=== PATIENT | male | born 1955 | race Caucasian/White ===

== ENCOUNTER 2018-02-18 03:42 | Observation (INO) | payer SELFPAY, OTHER, MEDICAID ==
[2018-02-18] MEDS: morphine 4 MG/ML VIAL IV (04:16)
[2018-02-18] MEDS: ONDANSETRON 4 MG INJ IV (04:16)
[2018-02-18] MEDS: hydrALAzine 20 MG INJ IV (04:17)
[2018-02-18 04:28] LABS: ADD MAN DIFF? NO
[2018-02-18 04:29] LABS: BASOPHIL # 0.1 10^3/ul (0.0-0.1); BASOPHILS % 0.8 % (0.0-2.0); EOSINOPHILS # 0.2 10^3/ul (0.0-0.5); EOSINOPHILS % 2.1 % (0.0-7.0); HEMATOCRIT 39.1 % (42.0-52.0); HEMOGLOBIN 13.9 g/dl (14.0-18.0); LYMPHOCYTES # 1.4 10^3/ul (0.8-2.9); LYMPHOCYTES % 19.1 % (15.0-51.0); MEAN CORPUSCULAR HEMOGLOBIN 30.2 pg (29.0-33.0); MEAN CORPUSCULAR HGB CONC 35.5 g/dl (32.0-37.0); MEAN CORPUSCULAR VOLUME 84.8 fl (82.0-101.0); MEAN PLATELET VOLUME 10.2 fl (7.4-10.4); MONOCYTE # 0.7 10^3/ul (0.3-0.9); MONOCYTES % 9.5 % (0.0-11.0); NEUTROPHILS % 68.1 % (39.0-77.0); PLATELET COUNT 292 10^3/UL (140-415); RED BLOOD COUNT 4.61 10^6/ul (4.70-6.10); RED CELL DISTRIBUTION WIDTH 11.6 % (11.5-14.5)
[2018-02-18 04:29] LABS: WHITE BLOOD COUNT 7.3 10^3/ul (4.8-10.8)
[2018-02-18 04:52] LABS: ALANINE AMINOTRANSFERASE 7 IU/L (13-69); ALBUMIN 3.5 g/dl (3.3-4.9); ALBUMIN/GLOBULIN RATIO 1.02; ALKALINE PHOSPHATASE 143 IU/L (42-121); ANION GAP 15 (8-16); ASPARTATE AMINO TRANSFERASE 17 IU/L (15-46); BILIRUBIN,INDIRECT 0.5 mg/dl (0-1.1); BILIRUBIN,TOTAL 0.5 mg/dl (0.2-1.3); BLOOD UREA NITROGEN 19 mg/dl (7-20); CALCIUM 9.7 mg/dl (8.4-10.2); CARBON DIOXIDE 25 mmol/L (21-31); CHLORIDE 97 mmol/L (97-110); CREATININE 0.74 mg/dl (0.61-1.24); GLUCOSE 341 mg/dl (70-220); LIPASE 191 U/L (23-300); POTASSIUM 4.2 mmol/L (3.5-5.1); SODIUM 133 mmol/L (135-144); TOTAL PROTEIN 6.9 g/dl (6.1-8.1)
[2018-02-18 05:02] LABS: ADD UMIC YES; UR ASCORBIC ACID NEGATIVE (NEGATIVE); UR BILIRUBIN (Dip) NEGATIVE (NEGATIVE); UR BLOOD (Dip) NEGATIVE (NEGATIVE); UR CLARITY CLEAR (CLEAR); UR COLOR STRAW (YELLOW); UR GLUCOSE (Dip) 3+ mg/dL (NEGATIVE); UR KETONES (Dip) NEGATIVE (NEGATIVE); UR LEUKOCYTE ESTERASE (Dip) NEGATIVE Leu/ul (NEGATIVE); UR NITRITE (Dip) NEGATIVE (NEGATIVE); UR RBC 1 /HPF (0-5); UR SPECIFIC GRAVITY (Dip) 1.028 (1.003-1.030); UR TOTAL PROTEIN (Dip) 1+ mg/dl (NEGATIVE); UR UROBILINOGEN (Dip) NEGATIVE (NEGATIVE); UR WBC 0 /HPF (0-5)
[2018-02-18] MEDS: METOPROLOL 5 MG INJ IV (05:49)
[2018-02-18] MEDS: PIPER-TAZO 3.375 GM IV (PMX) 100 ML IVPB (05:58)
[2018-02-18] MEDS ORDERED: ONDANSETRON 4 MG INJ IV (07:00)
[2018-02-18] MEDS ORDERED: NACL 0.9% 3 ML SYG IV (07:00)
[2018-02-18] MEDS ORDERED: DEXTROSE 50% 50 ML SYRINGE IV ×2 (08:00)
[2018-02-18] MEDS ORDERED: GLUCAGON 1 MG INJ IM (08:00)
[2018-02-18] MEDS ORDERED: GLUCOSE GEL 15 GRAM TUBE BUCCAL (08:00)
[2018-02-18] MEDS ORDERED: GLUCOSE GEL 15 GRAM TUBE PO ×2 (08:00)
[2018-02-18] MEDS: SOD CHLORIDE 0.9% 1,000 ML IV (09:33)
[2018-02-18] MEDS: CEFEPIME 1GM/50 ML (PMX) 50 ML IVPB ×2 (09:33→20:45)
[2018-02-18] MEDS: AMLODIPINE 10 MG TAB PO (09:34)
[2018-02-18] MEDS: HYDROCODONE/APAP (5/325) TAB PO (09:34)
[2018-02-18] MEDS: FAMOTIDINE 20 MG TAB PO ×2 (09:34→20:45)
[2018-02-18] MEDS: LISINOPRIL 10 MG TAB PO (09:39)
[2018-02-18] MEDS: ENOXAPARIN 40 MG/0.4 ML SYG SC (09:39)
[2018-02-18] MEDS: INSULIN GLARGINE [LANTus] (100 UNITS/ML) SYG SC (10:02)
[2018-02-18] MEDS: INSULIN ASPART [NOVOLOG] 3 ML PEN SC ×7 (10:03→20:58)
[2018-02-18] MEDS: CLINDAMYCIN 600 MG/D5W (PMX) 50 ML IVPB ×2 (14:25→22:27)
[2018-02-18] MEDS: ACETAMINOPHEN 325 MG TAB PO (15:14)
[2018-02-18 20:04] LABS: AMPHETAMINE/METHAMPHETAMINE Negative (NEGATIVE); BARBITURATES Negative (NEGATIVE); BENZODIAZEPINES Negative (NEGATIVE); CANNABINOIDS Negative (NEGATIVE); COCAINE Negative (NEGATIVE)
[2018-02-18 20:09] LABS: OPIATES Positive (NEGATIVE)
[2018-02-19] MEDS: ACCU-CHEK XX (02:02)
[2018-02-19 05:42] LABS: ADD MAN DIFF? NO
[2018-02-19 05:53] LABS: BASOPHIL # 0.1 10^3/ul (0.0-0.1); BASOPHILS % 0.9 % (0.0-2.0); EOSINOPHILS # 0.1 10^3/ul (0.0-0.5); EOSINOPHILS % 1.5 % (0.0-7.0); HEMOGLOBIN 12.4 g/dl (14.0-18.0); LYMPHOCYTES # 1.6 10^3/ul (0.8-2.9); LYMPHOCYTES % 23.6 % (15.0-51.0); MEAN CORPUSCULAR HEMOGLOBIN 30.8 pg (29.0-33.0); MEAN CORPUSCULAR HGB CONC 35.4 g/dl (32.0-37.0); MEAN CORPUSCULAR VOLUME 86.8 fl (82.0-101.0); MEAN PLATELET VOLUME 10.6 fl (7.4-10.4); MONOCYTE # 0.6 10^3/ul (0.3-0.9); MONOCYTES % 8.6 % (0.0-11.0); NEUTROPHIL # 4.5 10^3/ul (1.6-7.5); PLATELET COUNT 270 10^3/UL (140-415); RED BLOOD COUNT 4.03 10^6/ul (4.70-6.10); RED CELL DISTRIBUTION WIDTH 11.9 % (11.5-14.5)
[2018-02-19 05:53] LABS: WHITE BLOOD COUNT 6.9 10^3/ul (4.8-10.8)
[2018-02-19] MEDS: CLINDAMYCIN 600 MG/D5W (PMX) 50 ML IVPB ×3 (06:00→21:04)
[2018-02-19 06:29] LABS: ALANINE AMINOTRANSFERASE 23 IU/L (13-69); ALBUMIN 2.6 g/dl (3.3-4.9); ALBUMIN/GLOBULIN RATIO 0.96; ALKALINE PHOSPHATASE 80 IU/L (42-121); ASPARTATE AMINO TRANSFERASE 15 IU/L (15-46); BILIRUBIN,INDIRECT 0.4 mg/dl (0-1.1); BILIRUBIN,TOTAL 0.4 mg/dl (0.2-1.3); BLOOD UREA NITROGEN 18 mg/dl (7-20); CARBON DIOXIDE 26 mmol/L (21-31); CHLORIDE 103 mmol/L (97-110); CHOL/HDL RATIO 4.5 RATIO; CHOLESTEROL 190 mg/dl (100-200); CREATININE 0.85 mg/dl (0.61-1.24); GLUCOSE 189 mg/dl (70-220); HDL CHOLESTEROL 42 mg/dl (30-78); LDL CHOLESTEROL,CALCULATED 113 mg/dl; MAGNESIUM 1.8 mg/dl (1.7-2.5); PHOSPHORUS 3.9 mg/dl (2.5-4.9); SODIUM 135 mmol/L (135-144); TOTAL PROTEIN 5.3 g/dl (6.1-8.1); TRIGLYCERIDES 176 mg/dl (0-149)
[2018-02-19 06:34] LABS: ANION GAP 10 (8-16); POTASSIUM 4.3 mmol/L (3.5-5.1)
[2018-02-19 06:47] LABS: C-REACTIVE PROTEIN 0.6 mg/dl (0.0-0.9)
[2018-02-19 07:15] LABS: HEMOGLOBIN A1C 11.8 % (0-5.9)
[2018-02-19 07:52] LABS: ERYTHROCYTE SEDIMENTATION RATE 23 mm/Hr (0-20)
[2018-02-19] MEDS: INSULIN ASPART [NOVOLOG] 3 ML PEN SC ×7 (08:00→21:10)
[2018-02-19] MEDS: CEFEPIME 1GM/50 ML (PMX) 50 ML IVPB ×2 (08:44→21:02)
[2018-02-19] MEDS: INSULIN GLARGINE [LANTus] (100 UNITS/ML) SYG SC (08:55)
[2018-02-19] MEDS: LISINOPRIL 10 MG TAB PO ×2 (09:00→17:42)
[2018-02-19] MEDS: AMLODIPINE 10 MG TAB PO ×2 (09:00→17:42)
[2018-02-19] MEDS: FAMOTIDINE 20 MG TAB PO ×2 (09:00→21:02)
[2018-02-19] MEDS: ENOXAPARIN 40 MG/0.4 ML SYG SC (09:00)
[2018-02-19] MEDS ORDERED: VITAMIN A & D 5 GM OINT PACKET TOP (13:03)
[2018-02-19] MEDS ORDERED: LABETALOL HCL 20MG INJ IV (14:30)
[2018-02-19] MEDS ORDERED: HYDROmorphONE 1 MG/5 ML IV SYRINGE IV ×3 (14:30)
[2018-02-19] MEDS ORDERED: MEPERIDINE 25 MG INJ IV (14:30)
[2018-02-19] MEDS ORDERED: hydrALAzine 20 MG INJ IV (14:30)
[2018-02-19] MEDS ORDERED: ONDANSETRON 4 MG INJ IV (14:30)
[2018-02-19] MEDS ORDERED: FENTAnyl 50 MCG/ML VIAL IV ×3 (14:30)
[2018-02-19] MEDS ORDERED: DIPHENHYDRAMINE 50 MG INJ IV (14:30)
[2018-02-19] MEDS ORDERED: PROCHLORPERAZINE 10 MG INJ IV (14:30)
[2018-02-19] MEDS ORDERED: POLYMYXIN/BACITRACIN 1L IRRIG (15:00)
[2018-02-19] MEDS ORDERED: LIDOCAINE 1% (MPF) 10 ML INJ (15:02)
[2018-02-19] MEDS ORDERED: LIDOCAINE 1% (MDV) 20 ML INJ (15:08)
[2018-02-19] MEDS ORDERED: FENTAnyl 50 MCG/ML VIAL (15:08)
[2018-02-19] MEDS ORDERED: MIDAZOLAM 1 MG/ML 2 ML INJ (15:08)
[2018-02-19] MEDS ORDERED: ETOMIDATE 20 MG INJ (15:08)
[2018-02-19] MEDS ORDERED: ROPIVACAINE 0.5 % 30 ML VIAL (15:08)
[2018-02-19] MEDS ORDERED: PROPOFOL 100 ML (15:48)
[2018-02-19] MEDS ORDERED: NEOMYC/POLYMYX/BACIT 30 GM OINT (16:05)
[2018-02-19] MEDS ORDERED: HYDROmorphONE 0.5 MG/0.5 ML SYG IV (16:30)
[2018-02-20] MEDS: ACCU-CHEK XX (02:00)
[2018-02-20 05:48] LABS: ADD MAN DIFF? NO
[2018-02-20 05:50] LABS: WHITE BLOOD COUNT 6.6 10^3/ul (4.8-10.8)
[2018-02-20 05:50] LABS: BASOPHIL # 0.1 10^3/ul (0.0-0.1); BASOPHILS % 0.8 % (0.0-2.0); EOSINOPHILS # 0.1 10^3/ul (0.0-0.5); EOSINOPHILS % 1.5 % (0.0-7.0); HEMATOCRIT 38.2 % (42.0-52.0); HEMOGLOBIN 13.4 g/dl (14.0-18.0); LYMPHOCYTES # 1.7 10^3/ul (0.8-2.9); LYMPHOCYTES % 25.2 % (15.0-51.0); MEAN CORPUSCULAR HEMOGLOBIN 30.7 pg (29.0-33.0); MEAN CORPUSCULAR HGB CONC 35.1 g/dl (32.0-37.0); MEAN CORPUSCULAR VOLUME 87.6 fl (82.0-101.0); MEAN PLATELET VOLUME 10.5 fl (7.4-10.4); MONOCYTE # 0.6 10^3/ul (0.3-0.9); MONOCYTES % 8.7 % (0.0-11.0); NEUTROPHIL # 4.2 10^3/ul (1.6-7.5); NEUTROPHILS % 63.5 % (39.0-77.0); PLATELET COUNT 290 10^3/UL (140-415); RED BLOOD COUNT 4.36 10^6/ul (4.70-6.10); RED CELL DISTRIBUTION WIDTH 11.9 % (11.5-14.5)
[2018-02-20] MEDS: CLINDAMYCIN 600 MG/D5W (PMX) 50 ML IVPB ×2 (06:04→15:00)
[2018-02-20 07:03] LABS: ANION GAP 10 (8-16); BLOOD UREA NITROGEN 15 mg/dl (7-20); CALCIUM 8.9 mg/dl (8.4-10.2); CARBON DIOXIDE 25 mmol/L (21-31); CHLORIDE 107 mmol/L (97-110); CREATININE 0.93 mg/dl (0.61-1.24); GLUCOSE 228 mg/dl (70-220); POTASSIUM 4.2 mmol/L (3.5-5.1); SODIUM 138 mmol/L (135-144)
[2018-02-20 07:13] LABS: PHOSPHORUS 4.1 mg/dl (2.5-4.9)
[2018-02-20 07:13] LABS: MAGNESIUM 1.9 mg/dl (1.7-2.5)
[2018-02-20] MEDS: INSULIN ASPART [NOVOLOG] 3 ML PEN SC ×4 (08:12→12:49)
[2018-02-20] MEDS: INSULIN GLARGINE [LANTus] (100 UNITS/ML) SYG SC (08:21)
[2018-02-20] MEDS: FAMOTIDINE 20 MG TAB PO (09:11)
[2018-02-20] MEDS: AMLODIPINE 10 MG TAB PO (09:11)
[2018-02-20] MEDS: LISINOPRIL 10 MG TAB PO (09:11)
[2018-02-20] MEDS: ENOXAPARIN 40 MG/0.4 ML SYG SC (09:12)
[2018-02-20] MEDS: CEFEPIME 1GM/50 ML (PMX) 50 ML IVPB (09:22)
[2018-02-20] MEDS: INFLUENZA VIRUS VACCINE 0.5 ML (DISPENSING) IM* (15:09)
== END 2018-02-20 17:05 | disposition home or self-care (01) ==
LOC: E/R 03:42 → 2NE 05:41
DX: E11.622 Type 2 diabetes mellitus with other skin ulcer (principal); L97.819 Non-pressure chronic ulcer of other part of right lower leg with unspecified severity; E11.42 Type 2 diabetes mellitus with diabetic polyneuropathy; E11.65 Type 2 diabetes mellitus with hyperglycemia; Z79.4 Long term (current) use of insulin; I10 Essential (primary) hypertension
CPT/HCPCS: 11042; 71045; 80048; 80053; 80061; 80307; 81001; 82962; 83036; 83690; 83735; 84100; 85025; 85651; 86140; 87040; 87070; 87075; 87102; 88304; 93005; G0378